=== PATIENT | female | born 1990 | race Caucasian/White ===

== ENCOUNTER → 2020-02-25 16:50 | Outpatient (CLI) | payer OTHER, SELFPAY ==
[2020-02-25 17:12] LABS: Add Manual Diff / Slide Review NO; Basophils Absolute Auto 0 /uL (0-100); Basophils Percent Auto 0.5 % (0-2); Eosinophils Absolute Auto 200 /uL (0-450); Eosinophils Percent Auto 1.9 % (2-4); Hematocrit 35.8 % (36-46); Hemoglobin 12.2 g/dL (12.0-16.0); Lymphocytes Absolute Auto 1200 /uL (1100-4500); Lymphocytes Percent Auto 13.9 % (25-40); Mean Corpuscular HGB Conc 34.2 % (30-36); Mean Corpuscular Hemoglobin 29.7 PG (26-34); Mean Corpuscular Volume 86.9 fL (80-100); Monocytes Absolute Auto 500 /uL (0-900); Monocytes Percent Auto 5.1 % (3-14); Neutrophils Absolute Auto 6900 /uL (1500-7000); Neutrophils Percent Auto 78.6 % (50-75); Platelet Count 206 X10^3/uL (150-400); Red Blood Cell Count 4.12 X10^6/uL (4.0-5.2); Red Cell Distribution Width 13.7 % (11.6-14.8); White Blood Cell Count 8.8 X10^3/uL (4.5-11.0)
[2020-02-25 18:02] LABS: Hepatitis B Surface Antigen NEGATIVE s/c (NEGATIVE); Rubella Antibody IgG 27.8 IU/mL (>15)
[2020-02-25 18:18] LABS: HIV 1 & 2 Ab/Ag 4th Gen Combo NEGATIVE (NEGATIVE); Hep C Virus Ab w/Reflex Quant NEGATIVE s/c (NEGATIVE)
[2020-02-25 20:32] LABS: Urine N gonorrhoeae NOT DETECTED
[2020-02-25 20:34] LABS: Urine Chlamydia NOT DETECTED
[2020-02-26 07:09] LABS: RPR Screen Non Reactive (Non Reactive)
[2020-02-26 10:04] LABS: Varicella IgG Antibody 1457 index (Immune >165)
== END ==
PROVIDERS: PCP Family Medicine; Referring Provider Specialist; Visit Provider Specialist
DX: Z34.81 Encounter for supervision of other normal pregnancy, first trimester (principal); Z3A.11 11 weeks gestation of pregnancy
CPT/HCPCS: 36415; 80055; 86787; 86803; 86850; 86900; 86901; 87389; 87491; 87591

== ENCOUNTER → 2020-04-11 15:58 | Outpatient (CLI) | payer OTHER, SELFPAY ==
[2020-04-11 17:06] LABS: Appearance Urine UA CLEAR; Bilirubin Urine UA NEGATIVE (NEGATIVE); Color Urine UA YELLOW; Glucose Urine UA NEGATIVE (Negative); Ketones Urine UA TRACE (NEGATIVE); Leukocyte Esterase Urine UA NEGATIVE (NEGATIVE); Nitrite Urine UA NEGATIVE (Negative); Occult Blood Urine UA NEGATIVE (Negative); Protein Urine UA NEGATIVE (Negative); Specific Gravity Urine UA 1.025 (1.000-1.035); Urobilinogen Urine UA 0.2 E.U./dL (0.2)
[2020-04-11 18:08] LABS: Free T3, Triiodothyronine Free 3.21 pg/mL (2.77-5.27)
[2020-04-11 18:22] LABS: Thyroid Stimulating Hormone 1.43 uIU/mL (0.47-4.68)
[2020-04-13 19:07] LABS: AFP, Serum 58.5 ng/mL (.); Calc Gestational Age Ultrasound (.); Inhibin A, Dimeric 102.86 pg/mL (.); Maternal Ethnicity Caucasian (.); Maternal Weight 142 lbs (.); Number of Fetuses No (.); OSBR Risk 1 IN 5576 (.); Results Report (.); Test Results *Screen Negative* (.); hCG, MoM 1.09 (.); hCG, Serum 30951 mIU/mL (.)
== END ==
PROVIDERS: PCP Family Medicine; Referring Provider Specialist; Visit Provider Specialist
DX: Z34.82 Encounter for supervision of other normal pregnancy, second trimester (principal); Z3A.18 18 weeks gestation of pregnancy
CPT/HCPCS: 36415; 81003; 82105; 82677; 84443; 84481; 84702; 86336; 87086

== ENCOUNTER → 2020-04-26 14:19 | Outpatient (CLI) | payer OTHER, SELFPAY ==
--- NOTE | 2020-04-26 14:22 | DI.US.S_ITS ---
PROCEDURE: US OB >= 14 WEEKS FETUS INDICATIONS: 20 week anatomy scan OUTSIDE/PRIOR DATING DATA: Last menstrual period (LMP): Unknown. LMP-based estimated date of delivery (WILLEM): Unknown. First dating scan (date and location): 02/25/2020. Estimated date of delivery (WILLEM) from first dating scan: 09/08/2020. TECHNIQUE: Real-time scanning was performed of the fetus, with image documentation and biometric measurements. Endovaginal scanning: Not performed COMPARISON: [facility], , OB >= 14 WEEKS FETUS, 04/11/2020, 15:41. FINDINGS: General: A single living intrauterine gestation is present. Presentation: Cephalic. Placenta: Placental position is posterior, without previa. Amniotic fluid index: 14.7 cm, normal range is 5-24 cm. heart rate: 153 beats per minute. Maternal cervical canal: 3.8 cm long. Normal lower limit is 2.5 cm. biometrics: Biparietal diameter: 5.4 cm, 22 weeks 4 days Head circumference: 19.6 cm, 21 weeks 6 days Abdominal circumference: 16.2 cm, 21 weeks 2 days Femur length: 3.3 cm, 20 weeks 2 days Estimated gestational age from initial scan: 20 weeks 5 days Composite gestational age from present scan: 21 weeks 4 days Estimated weight and percentile: 393 g, 62% Measurement variability for biometric dating: +/- 7 days from 14 weeks to 15 weeks 6 days gestation, +/- 10 days from 16 weeks to 21 weeks 6 days gestation, +/- 2 weeks from 22 weeks to 27 weeks 6 days gestation, +/- 3 weeks for 28 weeks gestation or later. weight reference: 4500 g or EFW >90/95% is considered macrosomia or large for gestational age. EFW <10% is small for gestational age. EFW 5% or less is considered intra-uterine growth restriction. Anatomic survey: Neuro: Ventricles are non-dilated at less than 10 mm. Cisterna magna is normal at 3-11 mm. Cerebellum is normal in size and morphology. Nuchal skin fold: Normal at less than 6 mm between 14-21 weeks gestational age. Face: Nose and lips, facial profile are normal. Spine: No evidence for spina bifida. Heart: 4-chambered heart is present, with normal ventricular outflow tracts. Diaphragm: Diaphragm is intact. Stomach: Left-sided stomach is present. Kidneys: No hydronephrosis. Normal is less than 5 mm in 2nd trimester, less than 7 mm in 3rd trimester. Cord: 3-vessel cord has orthotopic insertion. Bladder: Normal in size. Extremities: All 4 extremities identified. IMPRESSION: 1. Hassan living intrauterine at 21 weeks 4 days based on today's ultrasound. Fetus is in the 62 percentile for weight. 2. Normal placenta and amniotic fluid. 3. Normal and complete anatomic survey. Dictated by: Nathanael Desai M.D. on 04/26/2020 at 17:27 Approved by: Nathanael Desai M.D. on 04/26/2020 at 17:32
== END ==
PROVIDERS: PCP Family Medicine; Referring Provider Specialist; Visit Provider Specialist
DX: Z34.82 Encounter for supervision of other normal pregnancy, second trimester (principal); Z3A.21 21 weeks gestation of pregnancy
CPT/HCPCS: 76811

== ENCOUNTER → 2020-06-04 11:18 | Outpatient (CLI) | payer OTHER, SELFPAY ==
[2020-06-04 12:52] LABS: Hematocrit 30.9 % (36-46); Hemoglobin 10.8 g/dL (12.0-16.0)
[2020-06-04 13:35] LABS: GTT (PREG) 1 Hour PP 50gm Dose 110 mg/dL (76-139)
== END ==
PROVIDERS: PCP Family Medicine; Referring Provider Obstetrics & Gynecology; Visit Provider Obstetrics & Gynecology
DX: Z34.90 Encounter for supervision of normal pregnancy, unspecified, unspecified trimester (principal); Z3A.24 24 weeks gestation of pregnancy
CPT/HCPCS: 36415; 82950; 85014; 85018

== ENCOUNTER → 2020-08-11 16:39 | Outpatient (CLI) | payer OTHER, SELFPAY ==
[2020-08-12 12:53] LABS: Strep Grp B PCR NEG for Grp B Strep
== END ==
PROVIDERS: PCP Family Medicine; Referring Provider Obstetrics & Gynecology; Visit Provider Obstetrics & Gynecology
DX: Z34.83 Encounter for supervision of other normal pregnancy, third trimester (principal); Z3A.35 35 weeks gestation of pregnancy
CPT/HCPCS: 87653

== ENCOUNTER 2020-09-08 14:44 | Outpatient (CLI) | payer OTHER, SELFPAY ==
--- NOTE | 2020-09-11 17:22 | PM.OBTRLD ---
Visit Information Visit Information Date of evaluation: 09/08/20 Primary OB Provider: Mira Hollis Reason for Evaluation: Yes non-stress test non-stress test reason: decreased movement PFSH Medical History (Updated 08/18/20 @ 09:49 by Mira Hollis MD) Allergies Anemia Chicken pox Eczema (~1999) Encounter for IUD removal (09/11/19) History of urinary incontinence (~2017) Knee problem Shingles (~2011) Sleep apnea (spontaneous vaginal delivery) (~05/2017) Surgical History (Updated 02/22/20 @ 11:29 by Liz Mcdonald, RN) No history of previous surgery Family History (Updated 02/22/20 @ 11:30 by Liz Mcdonald, RN) Father Arthritis Mother Knee problem Eczema Hypothyroidism Hypertension Brother Eczema Sister Eczema Knee problem Peritonitis Grandmother Anemia Hypothyroidism Hyperthyroidism Grandfather History of heart disease Stroke Grandmother Arthritis Grandfather Family estrangement Social History marital status: number of children: 1 household members: spouse and children lives independently: Yes pets and animals: No education level: college ([employer] and [employer] degree) occupational status: employed (Currently working from home) current occupational exposures/hazards: No special angela needs: No Smoking Status: Never smoker second hand exposure: No alcohol intake: never substance use type: does not use Evaluation Evaluation Baseline heart rate: 120 Variability: Moderate (11-25) monitor accelerations: Present Monitor Decelerations: Absent Contraction Frequency (minutes): 12 Uterine Contraction Intensity: Mild Category of Tracing: Reactive Diagnosis, Plan/Disposition Plan/Disposition Plan: Assessment: 39+4 weeks gestation Decreased movement Reactive NST OB Disposition: home
== END 2020-09-08 16:01 | disposition home or self-care (01) ==
LOC: LABOR 14:54 → OB 09-09 15:48
PROVIDERS: PCP Family Medicine; Referring Provider Obstetrics & Gynecology; Visit Provider Obstetrics & Gynecology
DX: O36.8130 Decreased fetal movements, third trimester, not applicable or unspecified (principal); Z3A.39 39 weeks gestation of pregnancy
CPT/HCPCS: 59025; G0378; G0379

== ENCOUNTER 2020-09-14 10:14 | Outpatient (CLI) | payer OTHER, SELFPAY | END 2020-09-14 10:45 | disposition home or self-care (01) | LOC: OB 09-15 06:32 | PROVIDERS: PCP Family Medicine; Referring Provider Obstetrics & Gynecology; Visit Provider Obstetrics & Gynecology | DX: Z03.71 Encounter for suspected problem with amniotic cavity and membrane ruled out (principal); O48.0 Post-term pregnancy; Z3A.40 40 weeks gestation of pregnancy | CPT/HCPCS: 59025; 84112; G0378; G0379 ==

== ENCOUNTER 2020-09-16 10:14 | Inpatient (IN) | payer OTHER, SELFPAY ==
[2020-09-16] MEDS: OXYTOCIN 10 UNIT/ML VIAL IM (10:30)
[2020-09-16 13:21] LABS: COVID19 - ADMIT (NP swab/PCR) Negative (Negative)
[2020-09-16 13:36] VITALS: BP 124/75
[2020-09-16] MEDS: IBUPROFEN 600 MG TABLET PO ×2 (15:32→22:14)
[2020-09-16] MEDS: LANOLIN OINT 7 GM 1 APPLIC TOP (16:00)
[2020-09-16] MEDS: DERMOPLAST SPRAY 20% 60 ML 1 SPRAY TOP (16:00)
--- NOTE | 2020-09-16 16:46 | P.HPOB_ITS ---
OB HPI Date/Time Date of admission: 09/16/20 Date Patient Seen: 09/16/20 Time Patient Seen: 10:15 History of Present Condition Chief complaint: Labor & Delivery : 2 Para: 1 Estimated Date of Delivery: 09/11/20 Estimated Gestational Age (weeks): 40+5 Narrative: Adriana Stovall is a 29 year old female 2 para 1 at 40-,5/7 weeks gestation who presented in active labor entering 2nd stage. History of Present care: good care, initiated at week # (11), number of visits (12) and pounds weight gain (49) Dating criteria: LMP confirmed by 1st trimester US Ultrasounds: normal 1st trimester US and normal mid trimester US Obstetrical complications: none Medical complications: none Preadmission Labs Blood type: O (+) positive -: Antibody screen: negative, GBS status: negative, HBsAG: negative, HIV: negative and RPR/VDLR: negative -: Chlamydia screen: not detected and Gonorrhea screen: not detected -: Rubella: immune and Varicella: immune HCT: 30.9 HCAB: negative Quad screen: Normal Urine: Negative 1 hr GTT: 110 Prior (ies) History: 1 Evaluation Evaluation Contraction Frequency (minutes): 2 Uterine Contraction Intensity: Strong/Firm Cervical dilation (cm): 10 Cervical effacement (%): 100 station: +1 Laboratory results: Laboratory Tests 09/16/20 12:10 SARS-CoV-2 (PCR) Negative [facility] Medical History (Updated 08/18/20 @ 09:49 by Mira Hollis MD) Allergies Anemia Chicken pox Eczema (~1999) Encounter for IUD removal (09/11/19) History of urinary incontinence (~2017) Knee problem Shingles (~2011) Sleep apnea (spontaneous vaginal delivery) (~05/2017) Surgical History (Updated 02/22/20 @ 11:29 by Liz Mcdonald RN) No history of previous surgery Family History (Updated 02/22/20 @ 11:30 by Liz Mcdonald RN) Father Arthritis Mother Knee problem Eczema Hypothyroidism Hypertension Brother Eczema Sister Eczema Knee problem Peritonitis Grandmother Anemia Hypothyroidism Hyperthyroidism Grandfather History of heart disease Stroke Grandmother Arthritis Grandfather Family estrangement Social History marital status: number of children: 1 household members: spouse and children lives independently: Yes pets and animals: No education level: college ([employer] and [employer] degree) occupational status: employed (Currently working from home) current occupational exposures/hazards: No special angela needs: No Smoking Status: Never smoker second hand exposure: No alcohol intake: never substance use type: does not use Meds Home Medications and Allergies Home Medications Medication Instructions Recorded Confirmed Type prenat.vits,henry,sje-dkzp-ewjlm 1 tab PO DAILY #90 tab 02/18/20 09/15/20 Rx omega 5-yjp-mzh-fish oil 100 cap PO 02/22/20 09/15/20 History mg-160 mg-1,000 mg capsule Allergies Allergy/AdvReac Type Severity Reaction Status Date / Time No Known Drug Allergies Allergy Verified 09/15/20 13:14 Exam Vital Signs (past 8 hours): - 09/16/20 13:36 Blood Pressure 124/75 Narrative Exam Narrative: Generally: Patient in moderate distress secondary to contractions Fundal height: 40 cm Pain estimated weight: 9 lb Objective Labs Labs: Laboratory Results - last 24 hr 09/16/20 12:10 SARS-CoV-2 (PCR) Negative Assessment and Plan Assessment and Plan Assessment and Plan narrative: Assessment: 29-year-old 2 para 1 at 40-,5/7 weeks gestation who presented in 2nd stage of labor Plan: Expected management to spontaneous vaginal delivery Time Spent with Patient Total time spent with greater than 50% in coordination of care (as documented) at patient's floor/unit and/or counseling patient:: 25 - 35 minutes
--- NOTE | 2020-09-16 16:51 | P.PCNOB_ITS ---
Labor & Delivery Delivery date: 09/16/20 Intrapartal Events: Precipitous Labor < 3 hours Cervical ripening method: none Induction method: none Route of delivery: Episiotomy description: None L&D Laceration Description: Superficial (Bilateral labial) Delivery repair: chromic (4-0) Estimated blood loss (mL): 200 Anesthesia Type: None Complications: None Narrative: Patient complete on arrival. She pushed with 2 contractions. At 10:20 a.m., a live male infant delivered in the ANA presentation over an intact perineum. The remainder of the body delivered without difficulty and the was placed on mom's abdomen. The cord was double clamped and cut fairly quickly due to baby's heart rate in the 90s. Cord bloods were obtained. 10 units of Pitocin were given IM. The placenta delivered intact with a three-vessel cord at 10:40 a.m.. Fundus was massaged to firm. Bilateral superficial labial lacerations were repaired with 4-0 chromic after 6 cc of 1% lidocaine was injected. Hemostasis was achieved. Apgars 8 at 1 minute and 8 at 5 minutes. Local analgesia only. Estimated blood loss 200 cc. Weight 9 lb 12 oz. . Mom and infant stable to recovery. [place] Baby 1: Infant gender: Male Presentation: vertex Position: Left Occiput Anterior Placenta delivery description: Spontaneous Cord Vessel Description: 3 Vessels score (1 min): 8 score (5 min): 8 weight: 9 lb 12 oz Plan for aftercare: Routine care
[2020-09-17 06:39] LABS: Hematocrit 35.5 % (36-46); Hemoglobin 12.2 g/dL (12.0-16.0)
[2020-09-17] MEDS: IBUPROFEN 600 MG TABLET PO (09:06)
[2020-09-17] MEDS: DOCUSATE 100 MG CAPSULE PO (09:06)
--- NOTE | 2020-09-17 10:29 | P.DS_ITS ---
Discharge Providers Provider Date of admission: 09/16/20 10:14 Discharge Date: 09/17/20 Primary care physician: Mukund Garcias DO Consults: 09/17/20 10:56 Consult to Hospital Unit Coordinator Routine Comment: Discharge provider: Mira Hollis MD Summary Hospital Course Date Patient Seen: 09/17/20 Time Patient Seen: 10:29 Diagnoses: Intrauterine at 40-,5/7 weeks gestation Precipitous delivery Spontaneous vaginal delivery Hospital Course: Patient is a 29-year-old 2 para 2 who presented to the hospital with complete dilation and ready to push. She pushed with 2 contractions and had a spontaneous vaginal delivery without complication. Her course was unremarkable. She is discharged home on day # 1. Peripartum Data Infant Delivery Method: Natural Vaginal Laceration Description: Superficial (Bilateral labial) Episiotomy description: None Procedures: Precipitous vaginal delivery Bilateral superficial labial laceration repair complications: none [place] 1: Gender: Male Disposition of : home Status at Discharge Cognitive/behavioral status at discharge: oriented Functional status at discharge: independent ambulation Overall status at discharge: patient is progressing back to baseline Time Spent with Patient Time attestation: Total time spent providing and/or coordinating discharge services: Time spent: Less than 30 minutes Objective Labs Result Diagrams: 09/17/20 06:17 Labs: Laboratory Results - last 24 hr 09/16/20 09/17/20 12:10 06:17 Hgb 12.2 Hct 35.5 L SARS-CoV-2 (PCR) Negative Exam Vital Signs (past 8 hours): Generally: Patient is sitting up in bed, no acute distress Fundus: Firm at U -1 Extremities: Negative Homans, no edema Discharge Plan Discharge Plan Patient Disposition: Home Provider Discharge Comment: Call with fever, chills, or bleeding vaginally more than a pad in an hour Ibuprofen 600 mg every 6 hours as needed for cramping Discharge orders & Medications Prescriptions: Continued prenat.vits,henry,vff-uotk-edidp Tablet 1 tab PO DAILY Qty: 90 RF: 3 omega 1-hyc-vqn-fish oil 100-160-1,000 mg capsule PO RF: 0 Follow up/Referrals: Mira Hollis MD [Physician] - 6 Weeks (My office will call on Saturday to schedule 6 week visit) Diet/Activity/Treatments Diet: Regular Activity: Nothing in the vagina for 6 weeks Skin/Wound/Dressing Care Report to your healthcare provider any signs of infection, such as:: chills, fever, increased pain and unusual drainage Visit Report/Discharge Packet Instructions: DI for Labor and Delivery, Vaginal Discharge Data Primary Care Provider: Mukund Garcias
[2020-09-17 11:51] VITALS: BP 109/89; PULSE 83; RESP 16; TEMP 36.6
== END 2020-09-17 12:19 | disposition home or self-care (01) | DRG 807 ==
PROVIDERS: Admitting Provider Obstetrics & Gynecology; PCP Family Medicine; Referring Provider Obstetrics & Gynecology; Visit Provider Obstetrics & Gynecology
DX: O62.3 Precipitate labor (principal); Z37.0 Single live birth; Z3A.40 40 weeks gestation of pregnancy; O70.0 First degree perineal laceration during delivery; Z20.822 Contact with and (suspected) exposure to COVID-19
CPT/HCPCS: 36415; 59050; 59400; 85014; 85018; 87635; C9803; G0379; J2590

== ENCOUNTER → 2021-05-23 17:37 | Outpatient (CLI) | payer OTHER, SELFPAY | PROVIDERS: PCP Family Medicine; Visit Provider Obstetrics & Gynecology | DX: N61.1 Abscess of the breast and nipple (principal) | CPT/HCPCS: 87070; 87075; 87077; 87147; 87186; 87205 ==

== ENCOUNTER → 2023-07-04 11:26 | Outpatient (CLI) | payer OTHER, SELFPAY ==
[2023-07-04 14:01] LABS: Hematocrit 32.7 % (36-46); Hemoglobin 11.1 g/dL (12.0-16.0)
[2023-07-04 14:47] LABS: GTT (PREG) 1 Hour PP 50gm Dose 76 mg/dL (76-139)
== END ==
PROVIDERS: PCP Family Medicine; Referring Provider Obstetrics & Gynecology; Visit Provider Obstetrics & Gynecology
DX: Z13.88 Encounter for screening for disorder due to exposure to contaminants (principal); Z34.82 Encounter for supervision of other normal pregnancy, second trimester; Z3A.26 26 weeks gestation of pregnancy
CPT/HCPCS: 36415; 82950; 83655; 85014; 85018

== ENCOUNTER → 2023-09-13 13:53 | Outpatient (CLI) | payer OTHER, SELFPAY ==
[2023-09-14 16:45] LABS: Strep Grp B PCR NEG for Grp B Strep
== END ==
PROVIDERS: PCP Family Medicine; Referring Provider Obstetrics & Gynecology; Visit Provider Obstetrics & Gynecology
DX: Z34.83 Encounter for supervision of other normal pregnancy, third trimester (principal); Z3A.36 36 weeks gestation of pregnancy
CPT/HCPCS: 87653

== ENCOUNTER 2023-10-13 11:51 | Outpatient (CLI) | payer OTHER, SELFPAY ==
--- NOTE | 2023-10-13 12:00 | PM.PROC.1 ---
Procedures Date/Time Date of procedure: 10/13/23 Time of procedure: 12:00 General Procedure description: Adriana came in today for evaluation of SROM. Amnisure negative. NST: Patient here for scheduled NST after ruling out SROM at term. Baseline: 130 bpm Variability: moderate Accelerations: present Decelerations: none Impression: Reactive NST Plan: Discharge home. Follow up with provider as scheduled
== END 2023-10-13 12:46 | disposition home or self-care (01) ==
LOC: OB 10-14 10:25
PROVIDERS: PCP Family Medicine; Referring Provider Specialist; Visit Provider Specialist
DX: Z03.71 Encounter for suspected problem with amniotic cavity and membrane ruled out (principal)
CPT/HCPCS: 59025; 84112; G0378; G0379

== ENCOUNTER 2023-10-16 02:49 | Inpatient (IN) | payer OTHER, SELFPAY ==
[2023-10-16 04:04] LABS: Add Manual Diff / Slide Review NO; Basophils Absolute Auto 100 /uL (0-100); Basophils Percent Auto 0.5 % (0-2); Eosinophils Absolute Auto 100 /uL (0-450); Eosinophils Percent Auto 1.1 % (2-4); Hematocrit 38.1 % (36-46); Hemoglobin 13.2 g/dL (12.0-16.0); Lymphocytes Absolute Auto 1300 /uL (1100-4500); Lymphocytes Percent Auto 13.3 % (25-40); Mean Corpuscular HGB Conc 34.7 % (30-36); Mean Corpuscular Hemoglobin 30.4 PG (26-34); Mean Corpuscular Volume 87.4 fL (80-100); Monocytes Absolute Auto 600 /uL (0-900); Monocytes Percent Auto 5.7 % (3-14); Neutrophils Absolute Auto 7700 /uL (1500-7000); Neutrophils Percent Auto 79.4 % (50-75); Platelet Count 168 X10^3/uL (150-400); Red Blood Cell Count 4.37 X10^6/uL (4.0-5.2); Red Cell Distribution Width 14.3 % (11.6-14.8); White Blood Cell Count 9.7 X10^3/uL (4.5-11.0)
[2023-10-16 04:45] VITALS: BP 130/86
--- NOTE | 2023-10-16 04:46 | P.HPOB_ITS ---
OB HPI Date/Time Date of admission: 10/16/23 Date Patient Seen: 10/16/23 Time Patient Seen: 04:46 History of Present Condition Chief complaint: Labor : 3 Para: 2 Estimated Date of Delivery: 10/11/23 Estimated Gestational Age (weeks): 40 Narrative: Adriana Stovall is a 32 year old female admitted in active labor. History of Present care: good care, initiated at week # (12), number of visits (11) and pounds weight gain (48) Dating criteria: LMP confirmed by 1st trimester US Ultrasounds: normal mid trimester US Obstetrical complications: none Medical complications: none Preadmission Labs Blood type: O (+) positive -: Antibody screen: negative, GBS status: negative, HBsAG: negative, HIV: negative and RPR/VDLR: negative -: Chlamydia screen: not detected and Gonorrhea screen: not detected -: Rubella: immune and Varicella: immune HCAB: negative Cell-free DNA: Normal female 1 hr GTT: 76 Prior (ies) History: Del. DateGA/WeeksLabor LgthBirth WtSexRouteOutcomeAnesthesiaPlace DelvBreastfeedPreg CompName 05/09/17 41.3 8 8 lb 6 oz Femalevaginallive - full termnoneU[place] BF!other[place]inn 09/16/20 40.6 3 9 lb 12 oz Malevaginallive - full termnoneIH 18 months noneHolt Evaluation Evaluation Baseline heart rate: 125 Variability: Moderate (11-25) monitor accelerations: Present Monitor Decelerations: Absent Contraction Frequency (minutes): 5 Uterine Contraction Intensity: Strong/Firm Category of Tracing: Reactive Dilation (cm): 5 Effacement (%): 80 station: -1 REPLACED BY [facility] Medical History (Updated 10/07/23 @ 23:47 by Mira Hollis MD) Knee problem Precipitous delivery Cellulitis of labia majora Breast abscess (spontaneous vaginal delivery) (~05/2017) Shingles (~2011) Chicken pox Anemia Surgical History (Updated 06/11/23 @ 10:07 by Marcy Knowles RN) History of removal of skin mole Family History (Updated 06/11/23 @ 10:08 by Marcy Knowles RN) Father Arthritis Diabetes mellitus Mother Knee problem Eczema Hypothyroidism Hypertension Brother Eczema Sister Eczema Knee problem Peritonitis Grandmother Anemia Hypothyroidism Hyperthyroidism Grandfather History of heart disease Stroke Grandmother Arthritis Grandfather Family estrangement Social History marital status: number of children: 2 household members: spouse and children lives independently: Yes caregiver/support person: Yes housing: house pets and animals: No education level: master's degree ([employer] and [employer] degree) occupational status: employed (Currently working from home) current occupational exposures/hazards: Yes (Concerns about possible lead exposure from housing) special angela needs: No travel history: recent ([place] only) other: Requesting lead testing as she has suspicions about lead paint and pipes seatbelt use: always helmet use: Yes water heater temp set < 120 deg: Yes working smoke detector in home: Yes fire extinguisher in home: Yes carbon monox detector in home: Yes firearms in home: Yes firearms unloaded and locked: Yes do you feel safe at home: Yes Smoking Status: Never smoker second hand exposure: No alcohol intake: never substance use type: does not use during the past year weight has: remained stable well-balanced diet: daily or most days daily servings fruits/ve or more times/day caffeine: No (rarely) Type(s) of exercise: resistance training Meds Home Medications and Allergies Home Medications Medication Instructions Recorded Confirmed Type prenat.vits,henry,owf-owhm-msvsh 1 tab PO DAILY #90 tabs 05/17/21 10/14/23 Rx L.acid,alexia-B.animal,bifid,infant cap PO 06/11/23 10/14/23 History 50 billion cell capsule,delayed rel ([employer] [place] [facility] Probiotic) omega 7-qnp-qjy-fish oil 100 cap PO 06/11/23 10/14/23 History mg-160 mg-1,000 mg capsule (Fish Oil) Allergies Allergy/AdvReac Type Severity Reaction Status Date / Time No Known Drug Allergies Allergy Verified 10/14/23 11:37 Review of Systems Review of Systems Narrative: Patient denies headaches, scotomata, epigastric pain. Good movement. No leakage of fluid. No vaginal bleeding. Cramping started 24 hours ago with stronger contractions 1:00 a.m. today. OB Exam Vital signs Blood Pressure: 130/86 Pulse Rate: 80 Temperature: 97.7 F Narrative Exam Narrative: HEENT exam within normal limits. No thyromegaly. Lungs are clear to auscultation percussion. Heart is regular rate and rhythm no S3-S4 murmurs. Abdomen is soft, nontender. Fetus is vertex. Extremities without edema and nontender. Objective Labs 10/16/23 03:45 Labs: Laboratory Results - last 24 hr 10/16/23 03:45 WBC 9.7 RBC 4.37 Hgb 13.2 Hct 38.1 MCV 87.4 MCH 30.4 MCHC 34.7 RDW 14.3 Plt Count 168 Neut % (Auto) 79.4 H Lymph % (Auto) 13.3 L [place] % (Auto) 5.7 Eos % (Auto) 1.1 L Baso % (Auto) 0.5 Neut # (Auto) 7700 H Lymph # (Auto) 1300 [place] # (Auto) 600 Eos # (Auto) 100 Baso # (Auto) 100 Assessment and Plan Assessment and Plan Assessment and Plan narrative: 32-year-old 3 para 2 EDC 10/10 at 40 and 1/2 weeks' gestation here in active labor. Anticipate vaginal delivery. Patient declines epidural. Time-Based Coding :: [TOTAL MINUTES] spent with patient and on the chart (including review of chart, obtaining history, exam, reviewing outside data, placing orders, documenting exam and treatment plan, and counseling patient) on [DATE].
[2023-10-16 04:59] VITALS: BP 130/86; PULSE 80; TEMP 36.5
[2023-10-16] MEDS: OXYTOCIN 10 UNIT/ML VIAL IM (07:59)
--- NOTE | 2023-10-16 08:10 | P.PCNOB_ITS ---
Labor & Delivery Delivery date: 10/16/23 Intrapartal Events: None Cervical ripening method: none Induction method: none Delivery monitor: external FHT (Intermittent monitoring) Route of delivery: L&D Laceration Description: None Estimated blood loss (mL): 100 Anesthesia Type: MAC +/- Complications: None Narrative: Patient arrived on Labor and delivery in active labor. She requested intermittent monitoring which was reassuring throughout labor. Patient used nitrous oxide for labor pains. Patient became completely dilated. She was AROM for clear fluid. Short 2nd stage labor. Patient delivered in the knee-chest position using the cub. A tight nuchal cord was released after delivery of the head. The viable female infant was then delivered and handed up to the mother. After delay the cord was clamped, cut, and cord bloods obtained. The placenta delivered spontaneously, intact, with 3 vessels. There were no cervical, vaginal, or perineal tears. Patient was given IM Pitocin as she refused IV access. Estimated blood loss was less than 100 cc. Infant and mother doing well. 1st stage of labor 7 hours 25 minutes, 2nd stage of labor 10 minutes, 3rd stage of labor 20 minutes. [place] Baby 1: Infant gender: Female Presentation: vertex Position: Left Occiput Anterior Placenta delivery description: Spontaneous Cord Vessel Description: 3 Vessels and Nuchal Cord (X1) score (1 min): 8 score (5 min): 9 weight: 7 lb 9.484 oz Plan for aftercare: Routine care
[2023-10-16] MEDS: IBUPROFEN 600 MG TABLET PO ×3 (09:55→23:23)
[2023-10-16] MEDS: DERMOPLAST SPRAY 20% 60 ML 1 SPRAY TOP (09:55)
[2023-10-17 06:09] LABS: Hematocrit 33.9 % (36-46); Hemoglobin 11.7 g/dL (12.0-16.0)
--- NOTE | 2023-10-17 07:29 | PM.OBDS.1 ---
Discharge Providers Provider Date of admission: 10/16/23 02:49 Discharge Date: 10/17/23 Primary care physician: Mukund Garcias DO Consults: 10/16/23 03:46 Consult to Anesthesiology Urgent Comment: Consulting Provider: Anesthesiologist Reason for consultation: Epidural 10/17/23 08:07 Consult to Automobile Service Station Manager Routine Comment: Discharge provider: Tanesha Garcia MD Summary Hospital Course Date Patient Seen: 10/17/23 Time Patient Seen: 07:30 Diagnoses: 40 week gestation spontaneous vaginal delivery Hospital Course: Patient arrived on Labor and delivery in active labor. She used nitrous oxide for pain control. She had a spontaneous vaginal delivery of a viable female . She is well, urinating and ambulating well. Pain is minimal. Bleeding is mild. Peripartum Data Delivery Method: Natural Vaginal Laceration Description: None Procedures: Spontaneous vaginal delivery complications: none [place] 1: Gender: Female Disposition of : home Discharge Diagnosis (1) 40 weeks gestation of : Status: Acute (2) Spontaneous vaginal delivery: Status: Acute Status at Discharge Cognitive/behavioral status at discharge: oriented Functional status at discharge: independent ambulation Overall status at discharge: patient is progressing back to baseline Time Spent with Patient Time attestation: Total time spent providing and/or coordinating discharge services: Objective Labs 10/17/23 05:50 Labs: Laboratory Results - last 24 hr 10/17/23 05:50 Hgb 11.7 L Hct 33.9 L Exam Vital Signs (past 8 hours): Blood pressure 110/74, pulse of 85, temperature 98.9? Narrative Exam Narrative: Abdomen is soft, nontender. Uterus is firm, at U, nontender. Mild lochia. Extremities without edema and nontender. Discharge Plan Discharge Plan Patient Disposition: Home Discharge orders & Medications Prescriptions: Continued prenat.vits,henry,gdj-reda-nwhud Tablet 1 tab PO DAILY Qty: 90 3RF Fish Oil 100-160-1,000 mg capsule PO Fortify [place] Women Probiotic 50 billion cell capsule,delayed release(DR/EC) PO Follow up/Referrals: Mira Hollis MD [Physician] - 6 Weeks Activity Restrictions/Additional Instructions: Nothing in vagina for 6 weeks Diet/Activity/Treatments Diet: Regular Skin/Wound/Dressing Care Report to your healthcare provider any signs of infection, such as:: chills, fever and increased pain Visit Report/Discharge Packet Stand Alone Forms: Discharge: Care, Patient Portal/API, Stroke Signs & Symptoms Discharge Data Primary Care Provider: Mukund Garcias
[2023-10-17 09:11] VITALS: BP 109/80; PULSE 89; RESP 17; TEMP 36.5
== END 2023-10-17 10:15 | disposition home or self-care (01) | DRG 807 ==
PROVIDERS: Specialist; Admitting Provider Family Medicine; PCP Family Medicine; Referring Provider Family Medicine; Visit Provider Family Medicine
DX: O80 Encounter for full-term uncomplicated delivery (principal); Z37.0 Single live birth; Z3A.40 40 weeks gestation of pregnancy
CPT/HCPCS: 36415; 59050; 85014; 85018; 85025; 86850; 86900; 86901; G0379; J2590